=== PATIENT | female | born 1985 | race Caucasian/White ===

== ENCOUNTER → 2016-07-13 | Outpatient (CLI) | payer BC ==
--- NOTE | 2016-07-13 18:00 | DIAGNOSTIC IMAGING REPORT ---
Right upper quadrant ultrasound GALLBLADDER-ABD LIMITED CLINICAL HISTORY: R10.811 RUQ abdominal tenderness pain. Nausea. TECHNIQUE: Ultrasound COMPARISON STUDY: None FINDINGS: Several small gallbladder polyps. No shadowing gallstones. Normal caliber bile ducts. Common bile duct 5 mm. Liver is uniform. Pancreas and right kidney are normal. IMPRESSION: Several small polyps within the gallbladder. Otherwise normal study Electronically signed by: Alex Turpin M.D. 07/13/2016 5:59 PM Dictated Date/Time: 07/13/2016 5:58 PM
[2016-07-13 18:16] LABS: BASO % 0.5 %; BASO ABS # 0.04 K/uL (0-0.2); COMPLETE YES; EOS % 2.5 %; HEMATOCRIT 34.7 % (37-47); IG% 0.1 %; LYMPH % 30.4 %; LYMPH ABS # 2.41 K/uL (1.2-3.4); MEAN CELL VOLUME 90.1 fL (80-100); MEAN CORPUSCULAR HEMOGLOBIN 28.6 pg (25-34); MEAN CORPUSCULAR HGB CONC 31.7 g/dl (32-36); MEAN PLATELET VOLUME 9.4 fL (7.4-10.4); MONO % 9.6 %; NEUT % 56.9 %; PLATELET COUNT 372 K/uL (130-400); RED BLOOD COUNT 3.85 M/uL (4.2-5.4); WHITE BLOOD COUNT 7.93 K/uL (4.8-10.8)
[2016-07-13 18:42] LABS: BLOOD UREA NITROGEN 8 mg/dl (7-18); BUN/CREATININE RATIO 14.6 (10-20); CALCIUM 8.3 mg/dl (8.5-10.1); CARBON DIOXIDE 30 mmol/L (21-32); CHLORIDE 106 mmol/L (98-107); CREATININE 0.56 mg/dl (0.60-1.20); GLUCOSE 84 mg/dl (70-99); POTASSIUM 2.6 mmol/L (3.5-5.1); SODIUM 142 mmol/L (136-145)
[2016-07-13 18:45] LABS: ALB/GLOB RATIO 1.2 (0.9-2); ALKALINE PHOSPHATASE 71 U/L (45-117); ALT/SGPT 30 U/L (12-78); AST/SGOT 15 U/L (15-37)
== END | disposition home or self-care (01) ==
LOC: C.ULTR 17:18
PROVIDERS: ATTEND Nurse Practitioner
DX: R10.811 Right upper quadrant abdominal tenderness (principal); K82.4 Cholesterolosis of gallbladder

== ENCOUNTER → 2016-08-04 | Outpatient (CLI) | payer BC ==
[~2016-08-04] MED LIST: SINCALIDE INJ 1.2 MCG in SODIUM CHLORIDE 0.9% 100ML 100 ML IV SCH
--- NOTE | 2016-08-04 10:11 | DIAGNOSTIC IMAGING REPORT ---
NUCLEAR HEPATOBILIARY SCAN WITH EJECTION FRACTION IMAGING CLINICAL HISTORY: Right upper quadrant abdominal pain. COMPARISON STUDY: Abdominal ultrasound dated 07/13/2016. TECHNIQUE: Dynamic images of the liver and anterior abdomen were obtained every 5 minutes for a total of 60 minutes following the IV administration of 5.5mCi of technetium 99m Choletec. 1.2 mcg of sincalide was then injected with additional images acquired every 5 minutes for 45 minutes to calculate the gallbladder ejection fraction. FINDINGS: The hepatobiliary scan shows prompt and homogeneous hepatic uptake. There is visualized activity within the intra and extrahepatic biliary tree at 10 minutes, and within the gallbladder at 10 minutes. There is normal biliary to bowel transit, with small bowel visualized by 30 minutes. On the sincalide imaging, the gallbladder ejection fraction was measured at 96%. IMPRESSION: 1. Unremarkable nuclear hepatobiliary scan. There is no scintigraphic evidence of cholecystitis. 2. The gallbladder ejection fraction measured 96% which is normal. Electronically signed by: Reji Perry M.D. 08/04/2016 10:09 AM Dictated Date/Time: 08/04/2016 10:08 AM
[2016-08-04 10:52] LABS: BLOOD UREA NITROGEN 9 mg/dl (7-18); BUN/CREATININE RATIO 13.2 (10-20); CALCIUM 9.1 mg/dl (8.5-10.1); CARBON DIOXIDE 27 mmol/L (21-32); CHLORIDE 108 mmol/L (98-107); CREATININE 0.65 mg/dl (0.60-1.20); GLUCOSE 93 mg/dl (70-99); POTASSIUM 3.3 mmol/L (3.5-5.1); SODIUM 143 mmol/L (136-145)
== END | disposition home or self-care (01) ==
LOC: C.NUCL 07:44
PROVIDERS: ATTEND Nurse Practitioner
DX: R10.811 Right upper quadrant abdominal tenderness (principal); R79.9 Abnormal finding of blood chemistry, unspecified